=== PATIENT | female | born 1935 | race Caucasian/White ===

== ENCOUNTER 2021-06-19 14:35 | Inpatient (IN) | payer MEDICARE, BC ==
[~2021-06-19] VITALS: Ht 149.9 cm; Wt 54.4 kg
[2021-06-19 15:26] LABS: HEMATOCRIT 41.1 % (31.2-41.9); MEAN CORPUSCULAR HEMOGLOBIN 31.8 uug (24.7-32.8); PLATELET COUNT (AUTO) 231 K/uL (179-408)
[2021-06-19 15:33] LABS: CREATININE 1.1 mg/dL (0.6-1.3); POTASSIUM 3.9 mmol/L (3.5-5.1)
[2021-06-19 15:39] LABS: BILIRUBIN,TOTAL 0.4 mg/dL (0.2-1.0); TOTAL PROTEIN, SERUM 7.6 g/dL (6.4-8.2)
[2021-06-19] MEDS ORDERED: IOHEXOL 300MG/ML 100 ML INFUS..BTL ONE (16:08)
[2021-06-19] MEDS ORDERED: IV NORMAL SALINE 250 ML IV ONE (16:09)
[2021-06-19] MEDS ORDERED: CELLULOSE,OXIDIZED 2x3 MC ONE (16:09)
[2021-06-19] MEDS ORDERED: diphenhydrAMINE 50 MG/1 ML VIAL IV ONE (16:15)
[2021-06-19] MEDS ORDERED: diphenhydrAMINE 50 MG/1 ML VIAL ONE (16:26)
--- NOTE | 2021-06-19 16:28 | NUR ---
CONSENT FOR CT SIGNED BY PATIENT - PREMEDICATED WITH BENADRYL 25MG IV PRIOR TO PROCEDURE PER MD ORDER. TO RADIOLOGY VIA [facility].
[2021-06-19] MEDS ORDERED: FLUO15CR TP (18:27)
[2021-06-19] MEDS ORDERED: LATA2.5D15 EACHEYE (18:27)
[2021-06-19] MEDS ORDERED: THYROID T PO (18:44)
[2021-06-19] MEDS ORDERED: DOXY100C5 PO (18:44)
[2021-06-19] MEDS ORDERED: ASPIRIN 325 MG TABLET PO ONE (18:45)
[2021-06-19] MEDS ORDERED: ASPIRIN 325 MG TABLET ONE (19:33)
[2021-06-19] MEDS ORDERED: ACETAMINOPHEN 325 MG TABLET PO PRN (20:15)
[2021-06-19] MEDS ORDERED: ONDANSETRON 4 MG/2 ML VIAL IV PRN (20:15)
[2021-06-19] MEDS ORDERED: MAGNESIUM HYDROXIDE 30 ML LIQUID UDC PO PRN (20:15)
[2021-06-19] MEDS ORDERED: HYDROCODONE/APAP 5-325MG TABLET PO PRN (20:15)
--- NOTE | 2021-06-19 22:00 | NUR ---
transfered to 3rd floor via [facility].
[2021-06-19 22:50] VITALS: BP 190/79
[2021-06-19 23:00] VITALS: BP 172/76
[2021-06-19] MEDS ORDERED: hydrALAZINE HCL 25 MG TABLET PO PRN (23:15)
[2021-06-19] MEDS: DOCUSATE SODIUM 100 MG CAPSULE PO SCH (23:32)
[2021-06-19] MEDS: ATORVASTATIN 40 MG TABLET PO SCH (23:32)
[2021-06-19] MEDS: METOPROLOL TARTRATE 25 MG TABLET PO SCH (23:32)
[2021-06-20] VITALS: BP 169/77
[2021-06-20 02:00] VITALS: BP 152/65
[2021-06-20 04:00] VITALS: BP 121/43
[2021-06-20] MEDS: PANTOPRAZOLE SODIUM 40 MG TABLET.DR PO SCH (06:06)
[2021-06-20 07:26] LABS: THYROID STIMULATING HORMONE 10.143 mIU/mL (0.358-3.740)
[2021-06-20 07:28] LABS: MEAN CORPUSCULAR HEMOGLOBIN 31.9 uug (24.7-32.8); MEAN CORPUSCULAR VOLUME 94.6 fL (75.5-95.3); PLATELET COUNT (AUTO) 221 K/uL (179-408)
--- NOTE | 2021-06-20 07:30 | NUR ---
received change of shift report from third shift lieutenant. pt a/ox4, NSR on tele monitor, pt on room air, no signs of distress, saturating well, no reports of pain. pt ambulatory, BRP, IV on the right FA 20g. bed low and locked, call light within reach will continue with plan of care.
[2021-06-20 07:44] LABS: BILIRUBIN,TOTAL 0.4 mg/dL (0.2-1.0); CREATININE 0.9 mg/dL (0.6-1.3); MAGNESIUM 2.4 mg/dL (1.8-2.4); POTASSIUM 3.9 mmol/L (3.5-5.1); TOTAL PROTEIN, SERUM 6.5 g/dL (6.4-8.2)
[2021-06-20] MEDS: ASPIRIN EC 81 MG TABLET.DR PO SCH (08:48)
[2021-06-20] MEDS: METOPROLOL TARTRATE 25 MG TABLET PO SCH (08:48)
[2021-06-20 12:00] VITALS: BP 131/50
[2021-06-20 16:00] VITALS: BP 97/46
[2021-06-20] MEDS: [UNRECOGNIZED DRUG - MIXTURE] PO SCH (16:12)
[2021-06-20] MEDS ORDERED: diphenhydrAMINE 50 MG/1 ML VIAL IV PRN (18:15)
[2021-06-20] MEDS ORDERED: ASPIRIN EC 81 MG TABLET.DR PO ONE (18:50)
--- NOTE | 2021-06-20 19:30 | NUR ---
Received pt awake, alert and orientedx3. Pt in no acute distress. Iv intact. Pt can make her needs known. Safety and comfort provided. Will continue to monitor.
[2021-06-20 20:40] VITALS: BP 104/48
[2021-06-20] MEDS: ATORVASTATIN 40 MG TABLET PO SCH (20:43)
[2021-06-20] MEDS: DOCUSATE SODIUM 100 MG CAPSULE PO SCH (20:49)
[2021-06-20] MEDS: LATANOPROST OPHT DROP 2.5 ML BOTTLE EACHEYE SCH (20:49)
[2021-06-20] MEDS ORDERED: AMLODIPINE 5 MG TABLET PO SCH (21:00)
--- NOTE | 2021-06-20 21:00 | NUR ---
Pt refused her Colace. Pt wants to be left alone. Bed alarm on. Safety and comfort provided. Will continue to monitor.
[2021-06-21 00:12] VITALS: BP 135/57
[2021-06-21 04:31] VITALS: BP 124/54
--- NOTE | 2021-06-21 05:24 | NUR ---
Pt slept comfortably.. Pt in no acute distress. Iv intact. Prescribed medication given and pt tolerated it well. Safety and comfort provided. Pt stable. Pt on sinus bradycardia lowest 49. All needs are met. Will endorse to incoming nurse for continuity of care.
[2021-06-21] MEDS: PANTOPRAZOLE SODIUM 40 MG TABLET.DR PO SCH (06:26)
[2021-06-21] MEDS ORDERED: LEVOTHYROXINE SODIUM 25 MCG TABLET PO SCH (07:00)
[2021-06-21] MEDS: [UNRECOGNIZED DRUG - MIXTURE] PO SCH (10:25)
[2021-06-21] MEDS: ASPIRIN EC 81 MG TABLET.DR PO SCH (10:25)
[2021-06-21] MEDS: CLOPIDOGREL 75 MG TABLET PO SCH (10:25)
[2021-06-21 11:00] VITALS: BP 151/58
--- NOTE | 2021-06-21 13:41 | NUR ---
Pt is a/o x 4, no signs of stroke during assessment. Pt is ambulatory, speaks clearly, able to tolerate meals and swallowing. No need to be kept NPO per radiology. Pt went for an MRI without contrast at 1045 via ambulance to [facility]. Pt returned from MRI via ambulance at 1150. Pt is stable on room air, presenting with sinus rhythm on tele. No signs of acute distress or discomfort, will continue to monitor pt.
[2021-06-21 16:08] VITALS: BP 128/40
[2021-06-21] MEDS: DOCUSATE SODIUM 100 MG CAPSULE PO SCH (20:44)
[2021-06-21] MEDS: LATANOPROST OPHT DROP 2.5 ML BOTTLE EACHEYE SCH (20:45)
[2021-06-21] MEDS ORDERED: ATORVASTATIN 40 MG TABLET PO SCH (21:00)
[2021-06-21 21:30] VITALS: BP 139/58
[2021-06-22 04:45] VITALS: BP 146/65
[2021-06-22] MEDS: PANTOPRAZOLE SODIUM 40 MG TABLET.DR PO SCH (06:21)
[2021-06-22 08:36] VITALS: BP 132/52
[2021-06-22] MEDS: [UNRECOGNIZED DRUG - MIXTURE] PO SCH (09:46)
[2021-06-22] MEDS: ASPIRIN EC 81 MG TABLET.DR PO SCH (09:47)
[2021-06-22] MEDS: CLOPIDOGREL 75 MG TABLET PO SCH (09:47)
--- NOTE | 2021-06-22 11:13 | NUR ---
Pt is a/o x 4, tolerating meals well, no signs of stroke on stroke scale, no complaint of numbness or tingling of extremities. Pt participated with physical therapy today, ambulating steadily. D/C'd telemetry per MD order. Comfort measures provided, call light within reach. Will continue to monitor pt.
[2021-06-22 11:40] VITALS: BP 134/80
[2021-06-22] MEDS ORDERED: ATOR40TA PO (12:23)
[2021-06-22] MEDS ORDERED: CLOP75TA33 PO (12:23)
[2021-06-22] MEDS ORDERED: PANT40TA49 PO (12:23)
[2021-06-22] MEDS ORDERED: ASPI-618 PO (12:23)
--- NOTE | 2021-06-22 14:22 | NUR ---
Pt is discharged. Pt is ambulatory, left via private car with granddaughter Jackie. Pt is a/o x 4, no signs of acute distress. All discharge education provided, personal belongings signed for and home medications returned to pt. accounting office manager provided number of outpatient neurologist to the granddaughter and set up appt for pt. MRI disc given to granddaughter with discharge paperwork.
== END 2021-06-22 14:30 | disposition home or self-care (01) | DRG 65 ==
LOC: ER 14:35 → TELE3 22:42 → MEDSURG3 06-22 10:00
PROVIDERS: ADMIT Internal Medicine; ATTEND Internal Medicine
DX: I63.9 Cerebral infarction, unspecified (principal); G45.9 Transient cerebral ischemic attack, unspecified; D68.59 Other primary thrombophilia; G81.91 Hemiplegia, unspecified affecting right dominant side; D32.9 Benign neoplasm of meninges, unspecified; E89.0 Postprocedural hypothyroidism; E11.9 Type 2 diabetes mellitus without complications; E78.5 Hyperlipidemia, unspecified; F41.9 Anxiety disorder, unspecified; I10 Essential (primary) hypertension; I70.0 Atherosclerosis of aorta; L30.9 Dermatitis, unspecified; Z20.822 Contact with and (suspected) exposure to COVID-19; I65.01 Occlusion and stenosis of right vertebral artery; Z91.041 Radiographic dye allergy status
CPT/HCPCS: 36415; 70030-TC; 70496; 70551; 71045; 83735; 84100; 84443; 85025; 85651; 93005; 93307; 93880; 97161; A4663; G0378; J1200; J7050; Q9967

== ENCOUNTER 2021-09-21 09:23 | Emergency (ER) | payer MEDICARE, BC ==
[~2021-09-21] VITALS: Ht 152.4 cm; Wt 54.0 kg
[~2021-09-21 09:23] MED LIST: ASPI-618 PO; ATOR40TA PO; CLOP75TA33 PO; FLUO15CR TP; LATA2.5D15 EACHEYE; PANT40TA49 PO; THYROID T PO
[2021-09-21] MEDS ORDERED: OXYCODONE/APAP 5-325 MG TABLET PO ONE (09:45)
[2021-09-21] MEDS ORDERED: CYCLOBENZAPRINE HCL 10 MG TABLET PO ONE (09:45)
[2021-09-21] MEDS ORDERED: CYCLOBENZAPRINE HCL 10 MG TABLET ONE (09:50)
[2021-09-21] MEDS ORDERED: OXYCODONE/APAP 5-325 MG TABLET ONE (09:51)
[2021-09-21] MEDS ORDERED: OXYC5TAB3 PO (10:36)
[2021-09-21] MEDS ORDERED: CYCL5TAB PO (10:36)
--- NOTE | 2021-09-21 11:03 | NUR ---
Patient discharged to home in stable condition. Written and verbal after care instructions given. Patient verbalizes understanding of instructions. Stressed follow up or return to ER for worsening s/s.pt walks in steady gait, accompaqnied by grand daughter. pt says feels better.
[2021-09-21 11:04] VITALS: BP 139/79
== END 2021-09-21 11:05 | disposition home or self-care (01) ==
LOC: ER 09:23
DX: M54.31 Sciatica, right side (principal); M25.551 Pain in right hip; Z91.041 Radiographic dye allergy status; E89.0 Postprocedural hypothyroidism; Z79.02 Long term (current) use of antithrombotics/antiplatelets; Z79.899 Other long term (current) drug therapy; F41.9 Anxiety disorder, unspecified; R03.0 Elevated blood-pressure reading, without diagnosis of hypertension
CPT/HCPCS: 73502; A4663